=== PATIENT | male | born 2000 | race Caucasian/White ===

== ENCOUNTER 2020-08-26 01:36 | Inpatient (IN) | payer BC ==
[~2020-08-26] VITALS: Ht 188 cm; Wt 80.0 kg
[2020-08-26] VITALS (7 sets, daily range): BP systolic 84–117; BP diastolic 41–77
[2020-08-26] MEDS ORDERED: iohexol 350MG/ML 100ml bottle IV ONE (01:55)
[2020-08-26] MEDS ORDERED: normal saline 1000ML IV soln IVB ONE (02:05)
[2020-08-26 02:21] LABS: BASOPHILS % (AUTO) 0.3 % (0-1); EOSINOPHILS # (AUTO) 0.3 X10'3 (0-0.9); EOSINOPHILS % (AUTO) 1.8 % (0-6); HEMATOCRIT 41.3 % (42.0-52.0); HEMOGLOBIN 14.1 g/dl (14.0-17.9); LYMPHOCYTES % (AUTO) 18.1 % (21-51); MEAN CORPUSCULAR HEMOGLOBIN 30.9 PG (27.0-31.0); MEAN CORPUSCULAR HGB CONC 34.1 g/dL (33.0-36.5); MEAN CORPUSCULAR VOLUME 90.8 FL (78-98); MEAN PLATELET VOLUME 8.6 FL (7.4-10.4); MONOCYTES # (AUTO) 1.1 X10'3 (0-0.9); MONOCYTES % (AUTO) 6.5 % (2-12); NEUTROPHILS # (AUTO) 12.2 X10'3 (1.8-7.7); NEUTROPHILS % (AUTO) 73.3 % (42-75); PLATELET COUNT 245 X10'3 (140-440); RED BLOOD COUNT 4.55 X10'6 (4.70-6.10); RED CELL DISTRIBUTION WIDTH 13.3 % (11.5-14.5); WHITE BLOOD COUNT 16.6 X10'3 (4.5-11.0)
[2020-08-26 02:30] LABS: ALANINE AMINOTRANSFERASE 26 U/L (12-78); ALBUMIN 3.6 G/DL (3.4-5.0); ALBUMIN/GLOBULIN RATIO 1.1 (1.1-1.5); ALKALINE PHOSPHATASE 78 IU/L (46-116); ANION GAP 16 (8-16); ASPARTATE AMINO TRANSFERASE 16 U/L (10-37); BILIRUBIN,TOTAL 0.4 MG/DL (0.1-1.0); BLOOD UREA NITROGEN 13 MG/DL (7-18); BUN/CREATININE RATIO 12.9 (5.4-32.0); CALCIUM 8.6 MG/DL (8.5-10.1); CHLORIDE 105 MMOL/L (99-107); CREATININE 1.01 MG/DL (0.60-1.10); GLUCOSE 133 MG/DL (70-104); POTASSIUM 3.4 MMOL/L (3.5-5.1); SODIUM 140 MMOL/L (135-145); TOTAL CARBON DIOXIDE 19.5 MMOL/L (24-32); TOTAL PROTEIN 6.9 G/DL (6.4-8.2); eGFR > 90 ML/MIN
[2020-08-26] MEDS ORDERED: LIDOcaine 1% W/epiNEPHrine 1:200,000 10ml vial IJ ONE (02:50)
[2020-08-26] MEDS ORDERED: LIDOcaine 1% w/epiNEPHrine 1:200,000 30ml vial IM ONE (02:55)
[2020-08-26] MEDS ORDERED: ringers solution, lacted 1,000 ML IV SCH ×2 (03:55→05:30)
[2020-08-26] MEDS ORDERED: ceFAZolin 2gm in dextrose, iso 100 ML IV ONE (03:55)
--- NOTE | 2020-08-26 04:07 | NUR ---
Unable to perform accucheck due to pt taken to OR
--- NOTE | 2020-08-26 04:10 | NUR ---
Father Teofilo notified, [phone]
[2020-08-26] MEDS ORDERED: fentaNYL/PF 50MCG/1 ML 2ML syringe ONE (04:14)
[2020-08-26] MEDS ORDERED: midazolam 1 mg/ML 2ml injection ONE (04:14)
[2020-08-26] MEDS ORDERED: propofol inj 20 ML IV ONE (04:15)
--- NOTE | 2020-08-26 04:28 | NUR ---
Patient in room ED 4. I have received report from LORENA TIMMONS and had the opportunity to ask questions and patient most likely to go in for an operation. Will assume patient care when patient arrives.
[2020-08-26] MEDS ORDERED: LIDOcaine 1% 30ml preserv. free vial ONE (04:55)
[2020-08-26] MEDS ORDERED: BUPIVAcaine/PF 2.5 mg/ml (0.25%) 30ml vial ONE (04:55)
[2020-08-26] MEDS ORDERED: rocuronium 10mg/ml inj IV ONE (05:16)
[2020-08-26] MEDS ORDERED: glycopyrrolate 0.2mg/ml inj ONE (05:16)
[2020-08-26] MEDS ORDERED: neostigmine methylsulfate 1 MG/ML 10ml vial ONE (05:16)
--- NOTE | 2020-08-26 05:20 | NUR ---
Received from OR via [facility], accompanied by Anesthesiologist CLEMENCIA and report given by Anesthesiolgist. PT ARRIVED ON 10 L O2 VIA MASK. AROUSABLE TO VERBAL STIMULI, VSS. PULSES PALPABLE IN ALL 4 EXTREMITIES. LR INFUSING AT 100 ML/HR. IV 20 G IN R. HAND CDI. DRESSING ON L. AC WOUND CDI. GAUZE WITH FAY WRAP. PT. ABLE TO MOVE FINGERS AND HAS SENSATION IN OPERATIVE ARM. Addendum: 08/26/20 at 0545 by Praveena Ho RN Amended: Links added.
[2020-08-26] MEDS ORDERED: meperidine/PF 25mg/ml syringe IV PRN ×3 (05:30)
[2020-08-26] MEDS ORDERED: proCHLORperazine 10 MG/2 ml inj IV PRN (05:30)
[2020-08-26] MEDS ORDERED: morphine 2 MG/ML inj. syringe IV PRN (05:30)
[2020-08-26] MEDS ORDERED: morphine 4 MG/ML inj SYRINge IV PRN (05:30)
[2020-08-26] MEDS ORDERED: ondansetron/PF 4mg/2ml inj IV PRN (05:30)
[2020-08-26] MEDS ORDERED: HYDROcodone/acetaminophen 5mg/325mg tablet PO PRN ×2 (05:35)
--- NOTE | 2020-08-26 06:50 | NUR ---
PT. MET DC CRITERIA. VSS. SOME NAUSEA/VOMITING WITH MOVEMENT. DECLINED ZOFRAN. DENIES PAIN. 800 ML URINE OUT. IV IN R. HAND DC. 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 DRESSING CDI. PT. STATES UNDERSTANDING. LEFT WITH FATHER. VIA PRIVATE VEHICLE. TRANSPORTED VIA WC. ABLE TO AMBULATE. AND TRANSFER. Addendum: 08/26/20 at 0706 by Praveena Ho RN Amended: Links added.
[2020-08-26] MEDS ORDERED: ondansetron 4mg rapidly disintigrating tab PO ONE (06:55)
[2020-08-26] MEDS ORDERED: ceFAZolin/D5W- 1GM premix 50 ML IV ONE (08:00)
== END 2020-08-26 07:38 | disposition home or self-care (01) | DRG 983 ==
LOC: ER 01:37 → ED HOLD 03:51 → SUR 3N 04:28
PROVIDERS: ADMIT Surgery; ATTEND Surgery
PROC: 0HQCXZZ Repair Left Upper Arm Skin, External Approach (ICD-10-PCS; 2020-08-26)
PROC: BP2U1ZZ Computerized Tomography (CT Scan) of Left Upper Extremity using Low Osmolar Contrast (ICD-10-PCS; 2020-08-26)
PROC: 05Q Upper Veins, Repair (ICD-10-PCS; principal; 2020-08-26 04:12)
DX: S41.112A Laceration without foreign body of left upper arm, initial encounter (principal); F12.90 Cannabis use, unspecified, uncomplicated; S51.012A Laceration without foreign body of left elbow, initial encounter; Z20.822 Contact with and (suspected) exposure to COVID-19; W01.0XXA Fall on same level from slipping, tripping and stumbling without subsequent striking against object, initial encounter; Y93.89 Activity, other specified; Y92.098 Other place in other non-institutional residence as the place of occurrence of the external cause; Y99.8 Other external cause status
CPT/HCPCS: 36415; 73206; 80053; 85025; 87426; 99285; A4618; A6449; A7000; G0378; J2001; J2250; J2704; J2710; J3010; J3490; J7030; J7120; Q9967